=== PATIENT | male | born 1940 | race Caucasian/White ===

== ENCOUNTER → 2018-08-12 11:09 | Outpatient (CLI) | payer MEDICARE, OTHER, SELFPAY ==
[2018-08-12 11:52] LABS: Add Manual Diff / Slide Review NO; Basophils Percent Auto 0.7 % (0-2); Eosinophils Percent Auto 1.6 % (2-4); Hemoglobin 13.7 g/dL (13.5-17.5); Lymphocytes Percent Auto 16.4 % (25-40); Mean Corpuscular HGB Conc 33.4 % (30-36); Mean Corpuscular Hemoglobin 31.3 PG (26-34); Mean Corpuscular Volume 93.5 fL (80-100); Monocytes Percent Auto 6.5 % (3-14); Neutrophils Absolute Auto 4200 /uL (3000-5900); Neutrophils Percent Auto 74.8 % (50-75); Platelet Count 186 X10^3/uL (150-400); Red Blood Cell Count 4.38 X10^6/uL (4.5-5.9); Red Cell Distribution Width 13.7 % (11.6-14.8); White Blood Cell Count 5.6 X10^3/uL (4.5-11.0)
[2018-08-12 12:11] LABS: Erythrocyte Sedimentation Rate 11 MM/HR (0-15)
[2018-08-12 12:25] LABS: Alanine Aminotransferase 14 IU/L (21-72); Albumin Globulin Ratio 1.4 (1.0-2.8); Alkaline Phosphatase 68 U/L (38-126); Aspartate Aminotransferase 31 IU/L (17-59); BUN Creatinine Ratio 18.3 (6-22); Bilirubin Total 0.8 mg/dL (0.2-1.3); Blood Urea Nitrogen 22 mg/dL (9-20); Carbon Dioxide 35 mmol/L (22-32); Chloride 104 mmol/L (98-107); Cholesterol 234 mg/dL (140-199); Estimated Glomerular Filt Rate 58.7 mL/min (>60); Globulin 2.9 g/dL (1.7-4.1); Glucose 99 mg/dL (80-110); HDL Cholesterol 79 mg/dL (40-60); HEMOLYSIS < 15 (0-50); LDL Cholesterol Calculated 142 mg/dL (<100); Sodium 144 mmol/L (137-145); Total Protein 6.9 g/dL (6.3-8.2); Triglycerides 64 mg/dL (35-150)
[2018-08-12 12:55] LABS: TSH w/ Reflex to FT4 1.54 uIU/mL (0.47-4.68)
== END ==
PROVIDERS: PCP Internal Medicine; Visit Provider Internal Medicine
DX: R63.4 Abnormal weight loss (principal); E78.00 Pure hypercholesterolemia, unspecified
CPT/HCPCS: 36415; 80053; 80061; 84443; 85025; 85651

== ENCOUNTER → 2018-12-04 10:40 | Outpatient (CLI) | payer MEDICARE, OTHER, SELFPAY ==
--- NOTE | 2018-12-04 | DI.US.S_ITS ---
PROCEDURE: US RENAL COMPLETE INDICATIONS: MICROHEMATURIA TECHNIQUE: Real-time scanning was performed of the kidneys and bladder, with image documentation. COMPARISON: None. FINDINGS: Kidneys: The right kidney is not well seen. Only the superior pole is seen. The left kidney measures 9.3 cm in length. The renal cortex measures within normal limits for thickness on both sides. Multiple nonobstructing bilateral renal stones are seen. The largest on the right measures 6 mm at the superior pole. The largest nonobstructing stone on the left measures 5 mm. No hydronephrosis is seen. No suspicious solid masses are seen, although there is a hyperechoic lesion measuring up to 1 cm at the superior pole of the left kidney. Bladder: Pre-void bladder volume is 111 mL. Post-void residual is 5 mL. Pre-void images demonstrate no intraluminal masses or stones. However, a mild amount of floating echogenic debris can be seen within the urinary bladder. On pre-void images, only the right ureteral jet can be seen with color Doppler interrogation. (Of note, ureteral jets may not be detectable in up to 25% of cases due to insufficient differences in specific gravity between ureteral and bladder urine). Miscellaneous: No free pelvic fluid. IMPRESSION: Bilateral nonobstructing kidney stones are seen. Negative for hydronephrosis. Echogenic debris seen within the bladder, which may be related to blood or urine tract infection. 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 Poor visualization of the right kidney. Dictated by: South Hernandez M.D. on 12/04/2018 at 11:41 Approved by: South Hernandez M.D. on 12/04/2018 at 11:45
== END ==
PROVIDERS: PCP Internal Medicine; Visit Provider Urology
DX: R31.29 Other microscopic hematuria (principal); N20.0 Calculus of kidney; D17.71 Benign lipomatous neoplasm of kidney
CPT/HCPCS: 76770

== ENCOUNTER → 2019-06-17 16:02 | Outpatient (CLI) | payer MEDICARE, OTHER, SELFPAY ==
--- NOTE | 2019-06-17 | DI.ECHO.S_ITS ---
[facility]---------+ [facility] +---------+ : : [address] : [place] : : : : [phone] : : : : Phone: [phone]+ Echocardiogram Report + + :Name: LU HILLMAN Study Date: 06/17/2019 Height: 62 in : :[facility] Exam Location: [place] Weight: 132 lb : : Gender: Male BSA: 1.6 m2 : :: 1940 Age: 78 yrs BP: 122/75 mmHg: :Reason For Study: Aortic valve stenosis : :Ordering Physician: Dr. Vega : :Barry Performed By: Joanna Page : + + Interpretation Summary 1) Normal left ventricular thickness, size, wall motion, and systolic function (EF 60-65%). 2) Normal right ventricular size and function. 2) There is mild aortic stenosis (valve area 1.4cm2, mean gradient 11.8mmHg, severity ratio 0.53). 4) Compared to the Echo done 10/26/2015, no significant change. Consider repeat Echo in 3 years for serial mornitoring, earlier if clinically indicated. Procedure: A two-dimensional transthoracic echocardiogram with color flow and Doppler was performed. The study quality was technically adequate. Comparison is made with the echocardiogram of 10/26/2015. The patient was in sinus bradycardia with heart rates between 52-60 bpm during the exam. Left Ventricle: Left ventricular wall thickness is normal. The left ventricle is normal in size. The ejection fraction is estimated to be 60-65%. There are no focal wall motion abnormalities. Diastolic parameters suggest a relaxation abnormality of the left ventricle, consistent with probable normal filling pressures. Right Ventricle: The right ventricle is mild to moderately dilated. The right ventricular systolic function is normal. Atria: The left atrium is severely dilated. Right atrial size is normal. There is no Doppler evidence for an interatrial shunt. Mitral Valve: The mitral valve leaflets are mildly calcified. There is severe mitral annular calcification. There is trace mitral regurgitation. Aortic Valve: The aortic valve is not well visualized. The aortic valve is moderately calcified. The peak aortic velocity is 2.2 m/sec. The peak aortic velocity on the previous exam was 2.3 m/sec. The aortic valve mean gradient is 11.8 mmHg. The calculated aortic valve area is 1.4 cm2. There is mild aortic stenosis. No aortic regurgitation is present. Tricuspid Valve: The tricuspid valve is normal in structure and function. There is a trace or physiologic amount of tricuspid regurgitation. Pulmonary artery pressures cannot be estimated because of the lack of a measurable TR jet velocity. Pulmonic Valve: The pulmonic valve is not well visualized. There is a trace or physiologic amount of pulmonic regurgitation. Great Vessels: The aortic root is normal size. The ascending aorta could not be visualized. The pulmonary artery is normal size. The IVC is of normal diameter and collapses less than 50% with a sniff. This suggests a right atrial pressure of 8 mm Hg. Pericardium/ Pleura There is no pericardial effusion. There is no pleural effusion. MMode/2D Measurements & Calculations LVIDd: 3.5 cm LVOT diam: 1.9 cm LVIDs: 2.2 cm Ao root diam: 3.1 cm FS: 38.8 % IVSd: 0.98 cm LVPWd: 0.97 cm LV nevarez. diameter/BSA (cm/m^2): 2.2 LV sys. diameter/BSA (cm/m^2): 1.3 LA A2 area: 29.6 cm2 RA long axis: 5.1 cm LA A4 area: 20.9 cm2 RA area: 13.8 cm2 LA length (vol): 5.3 cm RA vol: 31.8 ml LA vol: 99.1 ml RA : 19.8 ml/m2 LA vol index: 61.8 ml/m2 IVC diam: 2.0 cm RVD1 (basal): 4.9 cm RVD2 (mid): 4.1 cm Doppler Measurements & Calculations Ao V2 max: 218.2 cm/sec LVOT Max Brett: 102.4 cm/sec Ao V2 mean: 163.3 cm/sec LV V1 max P.2 mmHg Ao max P.0 mmHg LV V1 VTI: 23.7 cm Ao mean P.8 mmHg OFE(I,D): 1.4 cm2 Ao V2 VTI: 44.7 cm OFE(V,D): 1.3 cm2 sev ratio: 0.53 OFE indexed to BSA (cm^2/m^2): 0.90 MV E max brett: 95.1 cm/sec TR max brett: 197.6 cm/sec MV A max brett: 119.8 cm/sec TR max P.6 mmHg MV E/A: 0.79 PA V2 max: 68.3 cm/sec Med Peak E' Brett: 3.3 cm/sec PA V2 mean: 50.1 cm/sec E/E' med: 28.8 PA mean P.1 mmHg Lat Peak E' Brett: 4.1 cm/sec PA Accel Time: 0.04 sec E/E' lat: 23.0 E/e' average: 25.9 MV dec time: 0.36 sec MV P1/2t: 103.7 msec MV P1/2t max brett: 94.0 cm/sec SV(LVOT): 64.2 ml MVA(P1/2t): 2.1 cm2 Reading Physician:05:21 PM
== END ==
PROVIDERS: PCP Internal Medicine; Visit Provider Internal Medicine
DX: I35.1 Nonrheumatic aortic (valve) insufficiency (principal); I35.0 Nonrheumatic aortic (valve) stenosis
CPT/HCPCS: 93306

== ENCOUNTER → 2021-04-20 12:19 | Outpatient (ROUT) | payer MEDICARE, OTHER, SELFPAY | PROVIDERS: PCP Internal Medicine; Visit Provider Dermatology | DX: L00-L99 Diseases of the skin and subcutaneous tissue (principal) | CPT/HCPCS: 87070; 87147; 87205 ==

== ENCOUNTER → 2021-05-02 18:37 | Outpatient (ROUT) | payer MEDICARE, OTHER, SELFPAY ==
[2021-05-02 19:28] LABS: Add Manual Diff / Slide Review NO; Basophils Absolute Auto 0 /uL (0-100); Basophils Percent Auto 0.6 % (0-2); Eosinophils Absolute Auto 100 /uL (0-450); Eosinophils Percent Auto 1.3 % (2-4); Hemoglobin 11.5 g/dL (13.5-17.5); Lymphocytes Absolute Auto 900 /uL (1100-4500); Lymphocytes Percent Auto 12.9 % (25-40); Mean Corpuscular HGB Conc 33.7 % (30-36); Mean Corpuscular Hemoglobin 31.6 PG (26-34); Monocytes Absolute Auto 400 /uL (0-900); Monocytes Percent Auto 5.2 % (3-14); Neutrophils Absolute Auto 5500 /uL (1500-7000); Platelet Count 293 X10^3/uL (150-400); Red Blood Cell Count 3.62 X10^6/uL (4.5-5.9); Red Cell Distribution Width 13.5 % (11.6-14.8); White Blood Cell Count 6.8 X10^3/uL (4.5-11.0)
[2021-05-02 19:37] LABS: Albumin 3.7 g/dL (3.5-5.0); Albumin Globulin Ratio 1.2 (1.0-2.8); Alkaline Phosphatase 81 U/L (38-126); Aspartate Aminotransferase 30 IU/L (17-59); BUN Creatinine Ratio 22.7 (6-22); Bilirubin Total 0.4 mg/dL (0.2-1.3); Blood Urea Nitrogen 29 mg/dL (9-20); Calcium 9.6 mg/dL (8.4-10.2); Carbon Dioxide 28 mmol/L (22-32); Chloride 102 mmol/L (98-107); Cholesterol 299 mg/dL (140-199); Estimated Glomerular Filt Rate 54.1 mL/min (>60); Globulin 3.1 g/dL (1.7-4.1); Glucose 82 mg/dL (80-110); HDL Cholesterol 54 mg/dL (40-60); HEMOLYSIS 16 (0-50); LDL Cholesterol Calculated 226 mg/dL (<100); Potassium 4.5 mmol/L (3.4-5.1); Sodium 137 mmol/L (137-145); Total Protein 6.8 g/dL (6.3-8.2); Triglycerides 93 mg/dL (35-150)
[2021-05-02 19:38] LABS: Alanine Aminotransferase < 4 IU/L (<50)
[2021-05-02 19:52] LABS: T4 Total Thyroxine 5.66 ug/dL (5.5-11.0)
[2021-05-02 20:00] LABS: Hemoglobin A1C% w Est Avg Glu 5.5 % (4.0-6.0)
[2021-05-02 20:06] LABS: Thyroid Stimulating Hormone 3.31 uIU/mL (0.47-4.68)
== END ==
PROVIDERS: PCP Internal Medicine; Visit Provider Internal Medicine
DX: G20 Parkinson's disease (principal); E78.2 Mixed hyperlipidemia; Z00.00 Encounter for general adult medical examination without abnormal findings
CPT/HCPCS: 80053; 80061; 83036; 84436; 84443; 85025